=== PATIENT | female | born 1935 | race Caucasian/White ===

== ENCOUNTER 2018-06-18 19:45 | Emergency (ER) | payer MEDICARE ==
[~2018-06-18] VITALS: Ht 160 cm; Wt 114.0 kg
[~2018-06-18 19:45] MED LIST: ALDACTONE50 MG OR; AMOXICILLIN500 MG PO; ATENOLOL50 MG PO; BABY ASPIRIN81 MG PO; BACTROBAN2 % EX; CALCITRIOL0.25 MC1 OR; CALCIUM/D600 M3 PO; CALCIUM600 M1 OR; CHOLESTYRAM4 GM OR; COQ10100 MG PO; COUMADIN5 MG PO; FENOFIBRATE54 MG PO; FISH OIL1200 M1 OR; FLAX SEED1000 MG PO; FLEXERIL PO; FLEXERIL10 MG PO; GLUCOSAMINE1000 M1 OR; GNP RED YEAST RICE OR; KENALOG-4040 MG/ML IC; LOMOTIL2.5 MG PO; LOVASTATIN40 M1 PO; LOVASTATIN40 MG PO; MEDDOSEPAK OR; MEDDOSEPAK PO; NYSTATIN TOP; NYSTATIN100000 M3 TOP; OMEPRAZOLE20 M1 PO; OMEPRAZOLE20 MG OR; PLAVIX75 MG PO; POLYTRIM OD; POT CHLORIDE10 ME5 OR; PROLIA60 MG/ML SC; RANITIDINE150 M1 PO; RANITIDINE150 MG PO; SANTYL250 MG/GM EX; TENORMIN50 MG PO; TIZANIDINE HCL4 MG PO; TIZANIDINE2 MG PO; TIZANIDINE4 MG PO; TORSEMIDE20 M1 PO; ULTRAM50 MG PO; WARFARIN SODIUM5 MG PO; WARFARIN2.5 MG OR; WARFARIN2.5 MG PO; WARFARIN5 MG OR; WARFARIN5 MG PO; WOMENS MULTI OR; ZOSTAVAX IM; [UNRECOGNIZED DRUG - OTHER]; [UNRECOGNIZED DRUG - SUPPLY]
[2018-06-18 21:08] LABS: IMMATURE GRANULOCYTES 0.9 % (0.0-5.0); MEAN CELL VOLUME 93.7 fL CALC (80.0-100.0); MEAN CORPUSCULAR HGB 30.4 pG CALC (26.0-32.0); MEAN CORPUSCULAR HGB CONC 32.4 g/L CALC (32.0-36.0); NEUT# 9.53 thou/uL (2.00-7.15); RED BLOOD COUNT 5.43 mill/uL (4.20-5.60); RED CELL DISTRI WIDTH 12.9 % (11.5-15.5); URINE BILIRUBIN - DIPSTICK NEGATIVE (NEGATIVE); URINE BLOOD DIPSTICK SMALL (NEGATIVE); URINE COLOR YELLOW; URINE GLUCOSE - DIPSTICK NEGATIVE (NEGATIVE); URINE KETONE NEGATIVE (NEGATIVE); URINE NITRITE - DIPSTICK NEGATIVE (Negative); URINE PROTEIN - DIPSTICK NEGATIVE (NEG-TRACE); URINE UROBILINOGEN - DIPSTICK 0.2 E.U./dL (0.2)
[2018-06-18 21:09] LABS: HEMATOCRIT 50.9 % (37.0-47.0); HEMOGLOBIN 16.5 g/dl (12.0-16.0); URINE CLARITY CLOUDY; URINE LEUK ESTERASE MODERATE (NEGATIVE)
[2018-06-18 21:27] LABS: URINE BACTERIA FEW hpf; URINE SQUAMOUS EPITHELIAL CELL FEW EPI/hpf (0-FEW)
[2018-06-18 21:28] LABS: URINE YEAST FEW hpf
[2018-06-18 22:23] LABS: ALBUMIN 4.1 g/dL (3.2-5.0); BILIRUBIN, TOTAL 0.4 mg/dL (0.0-1.4); CREATININE 1.2 mg/dL (0.5-1.0); POTASSIUM 4.8 mmol/l (3.5-5.1); TOTAL PROTEIN 7.1 g/dL (6.3-8.2)
[2018-06-18] MEDS ORDERED: Levaquin PO (23:33)
[2018-06-18] MEDS ORDERED: ORPHENADRINE100 MG PO (23:33)
[2018-06-18] MEDS ORDERED: IBUPROFEN600 MG PO (23:33)
[2018-06-19 00:54] VITALS: BP 140/69
== END 2018-06-19 00:50 | disposition home or self-care (01) ==
LOC: ED 19:45
PROVIDERS: Emergency Medicine
DX: M51.37 Other intervertebral disc degeneration, lumbosacral region (principal); N39.0 Urinary tract infection, site not specified; I10 Essential (primary) hypertension; Z86.73 Personal history of transient ischemic attack (TIA), and cerebral infarction without residual deficits
CPT/HCPCS: J1956

== ENCOUNTER → 2018-10-11 | Outpatient (REF) | payer MEDICARE ==
[~2018-10-11] MED LIST changes: +IBUPROFEN600 MG PO; +Levaquin PO; +ORPHENADRINE100 MG PO
[2018-10-11 11:24] LABS: HEMATOCRIT 44.2 % (37.0-47.0); MEAN CELL VOLUME 94.2 fL CALC (80.0-100.0); MEAN CORPUSCULAR HGB 29.9 pG CALC (26.0-32.0); MEAN CORPUSCULAR HGB CONC 31.7 g/L CALC (32.0-36.0); RED BLOOD COUNT 4.69 mill/uL (4.20-5.60); RED CELL DISTRI WIDTH 13.1 % (11.5-15.5)
[2018-10-11 11:41] LABS: ALBUMIN 3.8 g/dL (3.2-5.0); BILIRUBIN, TOTAL 0.5 mg/dL (0.0-1.4); CREATININE 1.2 mg/dL (0.5-1.0); POTASSIUM 4.6 mmol/l (3.5-5.1); TOTAL PROTEIN 6.6 g/dL (6.3-8.2)
== END | disposition home or self-care (01) ==
LOC: LAB 10:29
PROVIDERS: ATTEND Internal Medicine
DX: E78.5 Hyperlipidemia, unspecified (principal); I10 Essential (primary) hypertension; M47.816 Spondylosis without myelopathy or radiculopathy, lumbar region; M81.0 Age-related osteoporosis without current pathological fracture; N18.3 Chronic kidney disease, stage 3 (moderate); Z95.2 Presence of prosthetic heart valve

== ENCOUNTER 2021-07-28 10:52 | Emergency (ER) | payer MEDICARE ==
[~2021-07-28] VITALS: Ht 160 cm; Wt 130.0 kg
[2021-07-28 12:35] LABS: HEMATOCRIT 39.5 % (37.0-47.0); HEMOGLOBIN 12.9 g/dl (12.0-16.0); IMMATURE GRANULOCYTES 0.1 % (0.0-5.0); MEAN CELL VOLUME 93.2 fL CALC (80.0-100.0); MEAN CORPUSCULAR HGB 30.4 pG CALC (26.0-32.0); MEAN CORPUSCULAR HGB CONC 32.7 g/dL CAL (32.0-36.0); NEUT# 6.9 thou/uL (2.00-7.15); RED BLOOD COUNT 4.24 mill/uL (4.20-5.60); RED CELL DISTRI WIDTH 12.7 % (11.5-15.5)
[2021-07-28 12:52] LABS: ALBUMIN 3.7 g/dL (3.2-5.0); ALKALINE PHOSPHATASE 58 u/l (38-126); ANION GAP 10 (6-22 (CALC)); BUN 16 mg/dL (8-23); BUN/CREATININE RATIO 16 (12-20 (CALC)); CARBON DIOXIDE 28 mmol/l (22-30); CHLORIDE 104 mmol/l (95-108); GFR 52 ML/MIN (>=60 (CALC)); GFR FOR AFR.AMER. > 60 ML/MIN (>=60 (CALC)); POTASSIUM 4.2 mmol/l (3.5-5.1); SGOT/AST 29 u/l (9-36); SODIUM 138 mmol/l (137-146)
[2021-07-28 13:02] LABS: BILIRUBIN, TOTAL 0.8 mg/dL (0.0-1.4)
[2021-07-28 13:09] LABS: INTERNATIONAL NORMALIZED RATIO 4.8 RATIO (0.7-1.3)
[2021-07-28 16:16] VITALS: BP 135/95
== END 2021-07-28 16:16 | disposition home or self-care (01) ==
LOC: ED 10:52
PROVIDERS: Family Medicine
DX: S80.01XA Contusion of right knee, initial encounter (principal); M25.551 Pain in right hip; I10 Essential (primary) hypertension; Z79.01 Long term (current) use of anticoagulants; Z95.2 Presence of prosthetic heart valve; W01.0XXA Fall on same level from slipping, tripping and stumbling without subsequent striking against object, initial encounter; Y92.009 Unspecified place in unspecified non-institutional (private) residence as the place of occurrence of the external cause; Z86.73 Personal history of transient ischemic attack (TIA), and cerebral infarction without residual deficits

== ENCOUNTER 2021-12-12 03:37 | Observation (INO) | payer MEDICARE ==
[~2021-12-12] VITALS: Ht 160 cm; Wt 90.9 kg
[~2021-12-12 03:37] MED LIST changes: +ASPIRINCHW 81MG PO; -BABY ASPIRIN81 MG PO; +CALCIUM PO; -CALCIUM/D600 M3 PO; +CEPHALEXIN500 M1 PO; +D3250 MCG PO; +GLUCOSAMI11 PO; +MULTIVITAMI9 PO; +MYRBETRIQ50 MG PO; +SOLIFENACIN SUC10 MG PO; +[UNRECOGNIZED DRUG - OTHER] PO; +[UNRECOGNIZED DRUG - OTHER] PO
[2021-12-12 03:43] VITALS: BP 177/59
[2021-12-12 04:07] LABS: HEMATOCRIT 44.4 % (37.0-47.0); HEMOGLOBIN 14.3 g/dl (12.0-16.0); IMMATURE GRANULOCYTES 0.3 % (0.0-5.0); MEAN CELL VOLUME 92.5 fL CALC (80.0-100.0); MEAN CORPUSCULAR HGB 29.8 pG CALC (26.0-32.0); MEAN CORPUSCULAR HGB CONC 32.2 g/dL CAL (32.0-36.0); NEUT# 4.43 thou/uL (2.00-7.15); RED BLOOD COUNT 4.8 mill/uL (4.20-5.60); RED CELL DISTRI WIDTH 12.7 % (11.5-15.5)
[2021-12-12 04:27] LABS: INTERNATIONAL NORMALIZED RATIO 3.7 RATIO (0.7-1.3); PROTHROMBIN TIME 35.4 SECONDS (9.0-12.5)
[2021-12-12 04:29] LABS: ALBUMIN 4.1 g/dL (3.2-5.0); ALKALINE PHOSPHATASE 45 u/l (38-126); ANION GAP 14 (6-22 (CALC)); BILIRUBIN, TOTAL 0.5 mg/dL (0.0-1.4); BUN 20 mg/dL (8-23); BUN/CREATININE RATIO 21 (12-20 (CALC)); CARBON DIOXIDE 29 mmol/l (22-30); CHLORIDE 103 mmol/l (95-108); CREATININE 0.9 mg/dL (0.5-1.0); GFR 59 ML/MIN (>=60 (CALC)); GFR FOR AFR.AMER. > 60 ML/MIN (>=60 (CALC)); POTASSIUM 4.4 mmol/l (3.5-5.1); SGOT/AST 32 u/l (9-36); SODIUM 141 mmol/l (137-146)
[2021-12-12 05:13] LABS: URINE BILIRUBIN - DIPSTICK NEGATIVE (NEGATIVE); URINE BLOOD DIPSTICK TRACE-INTACT (NEGATIVE); URINE COLOR YELLOW; URINE GLUCOSE - DIPSTICK NEGATIVE (NEGATIVE); URINE KETONE NEGATIVE (NEGATIVE); URINE LEUK ESTERASE TRACE (NEGATIVE); URINE SPECIFIC GRAVITY <=1.005; URINE UROBILINOGEN - DIPSTICK 0.2 E.U./dL (0.2)
[2021-12-12 05:21] LABS: URINE NITRITE - DIPSTICK NEGATIVE (Negative); URINE PROTEIN - DIPSTICK NEGATIVE (NEG-TRACE)
[2021-12-12] MEDS ORDERED: WARFARIN2 MG PO (05:26)
[2021-12-12 05:31] VITALS: BP 156/55
[2021-12-12 06:01] VITALS: BP 147/59
[2021-12-12 07:44] VITALS: BP 143/59
[2021-12-12] MEDS ORDERED: WARFARIN SODIU2.5 MG PO (11:51)
[2021-12-12] MEDS ORDERED: CALCIUM600 M1 PO (11:58)
[2021-12-12] MEDS ORDERED: FLAXSEED OIL1200 MG PO (12:01)
[2021-12-12] MEDS ORDERED: FISH OIL1000 M2 PO (12:02)
[2021-12-12] MEDS ORDERED: BENADRYL 25MG C25 MG PO (12:05)
[2021-12-12] MEDS ORDERED: CRESTOR10 MG PO (12:07)
== END 2021-12-12 15:02 ==
LOC: ED 03:37 → ED-I 05:05 → MS2 05:20 → ED 05:20 → MS2 15:02
PROVIDERS: Emergency Medicine; ADMIT Hospitalist; ATTEND Hospitalist
DX: S00.83XA Contusion of other part of head, initial encounter (principal); S80.02XA Contusion of left knee, initial encounter; S70.12XA Contusion of left thigh, initial encounter; I10 Essential (primary) hypertension; W01.0XXA Fall on same level from slipping, tripping and stumbling without subsequent striking against object, initial encounter; Y92.009 Unspecified place in unspecified non-institutional (private) residence as the place of occurrence of the external cause; Z86.73 Personal history of transient ischemic attack (TIA), and cerebral infarction without residual deficits; Z79.01 Long term (current) use of anticoagulants; Z95.2 Presence of prosthetic heart valve; Z60.2 Problems related to living alone; Z20.822 Contact with and (suspected) exposure to COVID-19

== ENCOUNTER 2023-03-13 19:48 | Emergency (ER) | payer MEDICARE ==
[~2023-03-13] VITALS: Ht 160 cm; Wt 74.0 kg
[2023-03-13] VITALS (9 sets, daily range): BP systolic 165–201; BP diastolic 63–96
[~2023-03-13 19:48] MED LIST changes: +BENADRYL 25MG C25 MG PO; +CALCIUM600 M1 PO; +CRESTOR10 MG PO; +FISH OIL1000 M2 PO; +FLAXSEED OIL1200 MG PO; +WARFARIN SODIU2.5 MG PO; +WARFARIN2 MG PO
[2023-03-13 20:29] LABS: BASO% 0.7 % (0-3); EOS% 3.1 % (0-8); HEMATOCRIT 38.8 % (37.0-47.0); HEMOGLOBIN 12.3 g/dl (12.0-16.0); LYMPH% 23.1 % (15-41); MEAN CELL VOLUME 93.3 fL CALC (80.0-100.0); MEAN CORPUSCULAR HGB 29.6 pG CALC (26.0-32.0); MEAN CORPUSCULAR HGB CONC 31.7 g/dL CAL (32.0-36.0); MONO% 12.5 % (2-13); NEUT# 3.58 thou/uL (2.00-7.15); NEUT% 60.6 % (42-76); RED BLOOD COUNT 4.16 mill/uL (4.20-5.60); RED CELL DISTRI WIDTH 12.7 % (11.5-15.5)
[2023-03-13 20:47] LABS: ALBUMIN 3.6 g/dL (3.2-5.0); ALKALINE PHOSPHATASE 41 u/l (38-126); ANION GAP 5 (6-22 (CALC)); BILIRUBIN, TOTAL 0.8 mg/dL (0.02-1.3); BUN 10 mg/dL (8-23); BUN/CREATININE RATIO 12 (12-20 (CALC)); CARBON DIOXIDE 39 mmol/l (22-30); CHLORIDE 100 mmol/l (95-108); CREATININE 0.8 mg/dL (0.5-1.0); GFR FOR AFR.AMER. > 60 ML/MIN (>=60 (CALC)); GFR OTHER RACES > 60 ML/MIN (>=60 (CALC)); INTERNATIONAL NORMALIZED RATIO 3.5 RATIO (0.7-1.3); POTASSIUM 2.8 mmol/l (3.5-5.1); PROTHROMBIN TIME 36.5 SECONDS (9.0-12.5); SGOT/AST 34 u/l (9-36); SODIUM 141 mmol/l (137-146); TOTAL PROTEIN 6.1 g/dL (6.3-8.2)
[2023-03-13] MEDS ORDERED: POTASSIUM CHLO20 ME1 PO (22:01)
== END 2023-03-13 23:06 | disposition home or self-care (01) ==
LOC: ED 19:48
PROVIDERS: Family Medicine
DX: Z04.3 Encounter for examination and observation following other accident (principal); E87.6 Hypokalemia; I10 Essential (primary) hypertension; Z86.73 Personal history of transient ischemic attack (TIA), and cerebral infarction without residual deficits

== ENCOUNTER 2023-03-22 22:16 | Observation (INO) | payer MEDICARE ==
[~2023-03-22] VITALS: Ht 160 cm; Wt 68.8 kg
[~2023-03-22 22:16] MED LIST changes: +POTASSIUM CHLO20 ME1 PO
[2023-03-22 22:23] VITALS: BP 199/132
[2023-03-22 22:27] VITALS: BP 198/71
[2023-03-22 23:35] LABS: BASO% 0.6 % (0-3); EOS% 2.3 % (0-8); HEMATOCRIT 43.9 % (37.0-47.0); HEMOGLOBIN 14.1 g/dl (12.0-16.0); LYMPH% 23.4 % (15-41); MEAN CELL VOLUME 92.8 fL CALC (80.0-100.0); MEAN CORPUSCULAR HGB 29.8 pG CALC (26.0-32.0); MEAN CORPUSCULAR HGB CONC 32.1 g/dL CAL (32.0-36.0); MONO% 11.9 % (2-13); NEUT# 4.12 thou/uL (2.00-7.15); NEUT% 61.8 % (42-76); RED BLOOD COUNT 4.73 mill/uL (4.20-5.60)
[2023-03-22 23:49] LABS: ALBUMIN 4.3 g/dL (3.2-5.0); ALKALINE PHOSPHATASE 49 u/l (38-126); BUN 12 mg/dL (8-23); BUN/CREATININE RATIO 14 (12-20 (CALC)); CARBON DIOXIDE 32 mmol/l (22-30); CHLORIDE 103 mmol/l (95-108); CREATININE 0.9 mg/dL (0.5-1.0); GFR FOR AFR.AMER. > 60 ML/MIN (>=60 (CALC)); GFR OTHER RACES 59 ML/MIN (>=60 (CALC)); SGOT/AST 39 u/l (9-36); SODIUM 140 mmol/l (137-146); TOTAL PROTEIN 7.3 g/dL (6.3-8.2)
[2023-03-22 23:51] LABS: ANION GAP 9 (6-22 (CALC)); BILIRUBIN, TOTAL 1.2 mg/dL (0.02-1.3); POTASSIUM 4.2 mmol/l (3.5-5.1)
[2023-03-22 23:54] VITALS: BP 182/130
[2023-03-22 23:55] VITALS: BP 193/127
[2023-03-22 23:58] VITALS: BP 174/70
[2023-03-23] VITALS (7 sets, daily range): BP systolic 161–191; BP diastolic 54–82
[2023-03-23 00:11] LABS: INTERNATIONAL NORMALIZED RATIO 12.5 RATIO (0.7-1.3)
[2023-03-23 00:47] LABS: URINE BILIRUBIN - DIPSTICK Negative (NEGATIVE); URINE BLOOD DIPSTICK Small (NEGATIVE); URINE GLUCOSE - DIPSTICK Negative (NEGATIVE); URINE KETONE Trace mg/dL (NEGATIVE); URINE LEUK ESTERASE Trace (NEGATIVE); URINE PH 7.5 (4.5-8.0); URINE PROTEIN - DIPSTICK Negative (NEG-TRACE); URINE SPECIFIC GRAVITY 1.015; URINE UROBILINOGEN - DIPSTICK 0.2 E.U./dL (0.2)
[2023-03-23 00:54] LABS: URINE COLOR Yellow; URINE NITRITE - DIPSTICK Negative (Negative)
[2023-03-23 00:55] LABS: URINE BACTERIA FEW hpf; URINE EPITHELIAL CELLS FEW EPI/hpf (0-FEW)
[2023-03-23 14:53] LABS: INTERNATIONAL NORMALIZED RATIO 2.2 RATIO (0.7-1.3); PROTHROMBIN TIME 20.4 SECONDS (9.0-12.5)
[2023-03-24 00:18] VITALS: BP 169/68
[2023-03-24 04:07] VITALS: BP 172/67
[2023-03-24 06:16] LABS: HEMOGLOBIN 12.4 g/dl (12.0-16.0); MEAN CELL VOLUME 93.1 fL CALC (80.0-100.0); MEAN CORPUSCULAR HGB 30.7 pG CALC (26.0-32.0); RED BLOOD COUNT 4.04 mill/uL (4.20-5.60); RED CELL DISTRI WIDTH 12.9 % (11.5-15.5)
[2023-03-24 06:17] LABS: HEMATOCRIT 37.6 % (37.0-47.0)
[2023-03-24 06:22] LABS: ANION GAP 6 (6-22 (CALC)); BUN 10 mg/dL (8-23); BUN/CREATININE RATIO 15 (12-20 (CALC)); CARBON DIOXIDE 29 mmol/l (22-30); CHLORIDE 110 mmol/l (95-108); CREATININE 0.6 mg/dL (0.5-1.0); GFR FOR AFR.AMER. > 60 ML/MIN (>=60 (CALC)); GFR OTHER RACES > 60 ML/MIN (>=60 (CALC)); POTASSIUM 3.4 mmol/l (3.5-5.1); SODIUM 141 mmol/l (137-146)
[2023-03-24 06:31] LABS: INTERNATIONAL NORMALIZED RATIO 1.4 RATIO (0.7-1.3); PROTHROMBIN TIME 13.3 SECONDS (9.0-12.5)
[2023-03-24 07:04] VITALS: BP 176/71
[2023-03-24 11:17] VITALS: BP 178/60
[2023-03-24 15:16] VITALS: BP 167/56
[2023-03-24 21:25] VITALS: BP 183/63
[2023-03-25] VITALS (7 sets, daily range): BP systolic 155–184; BP diastolic 54–73
[2023-03-25 05:34] LABS: BASO% 0.5 % (0-3); EOS% 4.1 % (0-8); HEMATOCRIT 37.8 % (37.0-47.0); HEMOGLOBIN 12.7 g/dl (12.0-16.0); LYMPH% 24.5 % (15-41); MEAN CELL VOLUME 91.5 fL CALC (80.0-100.0); MEAN CORPUSCULAR HGB 30.8 pG CALC (26.0-32.0); MEAN CORPUSCULAR HGB CONC 33.6 g/dL CAL (32.0-36.0); MONO% 14.7 % (2-13); NEUT# 3.55 thou/uL (2.00-7.15); NEUT% 56.2 % (42-76); RED BLOOD COUNT 4.13 mill/uL (4.20-5.60)
[2023-03-25 05:38] LABS: INTERNATIONAL NORMALIZED RATIO 1.5 RATIO (0.7-1.3)
[2023-03-25 05:43] LABS: ALKALINE PHOSPHATASE 43 u/l (38-126); ANION GAP 5 (6-22 (CALC)); BILIRUBIN, TOTAL 1.3 mg/dL (0.02-1.3); BUN 6 mg/dL (8-23); BUN/CREATININE RATIO 9 (12-20 (CALC)); CARBON DIOXIDE 30 mmol/l (22-30); CHLORIDE 110 mmol/l (95-108); CREATININE 0.6 mg/dL (0.5-1.0); GFR FOR AFR.AMER. > 60 ML/MIN (>=60 (CALC)); GFR OTHER RACES > 60 ML/MIN (>=60 (CALC)); MAGNESIUM 1.8 mg/dL (1.6-2.3); POTASSIUM 3.3 mmol/l (3.5-5.1); SGOT/AST 33 u/l (9-36); SODIUM 142 mmol/l (137-146)
[2023-03-25 05:48] LABS: TOTAL PROTEIN 5.7 g/dL (6.3-8.2)
[2023-03-26 00:31] VITALS: BP 167/59
[2023-03-26 00:39] VITALS: BP 167/59
[2023-03-26 04:16] VITALS: BP 166/56
[2023-03-26 05:15] VITALS: BP 166/56
[2023-03-26 05:24] LABS: BASO% 0.8 % (0-3); HEMATOCRIT 38.7 % (37.0-47.0); HEMOGLOBIN 12.9 g/dl (12.0-16.0); IMMATURE GRANULOCYTES 0.1 % (0.0-5.0); LYMPH% 22.5 % (15-41); MEAN CELL VOLUME 91.9 fL CALC (80.0-100.0); MEAN CORPUSCULAR HGB 30.6 pG CALC (26.0-32.0); MEAN CORPUSCULAR HGB CONC 33.3 g/dL CAL (32.0-36.0); MONO% 10.6 % (2-13); NEUT# 4.63 thou/uL (2.00-7.15); RED BLOOD COUNT 4.21 mill/uL (4.20-5.60); RED CELL DISTRI WIDTH 13.2 % (11.5-15.5)
[2023-03-26 05:43] LABS: ALBUMIN 3.1 g/dL (3.2-5.0); ALKALINE PHOSPHATASE 44 u/l (38-126); ANION GAP 5 (6-22 (CALC)); BILIRUBIN, TOTAL 1.2 mg/dL (0.02-1.3); BUN 6 mg/dL (8-23); BUN/CREATININE RATIO 9 (12-20 (CALC)); CARBON DIOXIDE 28 mmol/l (22-30); CHLORIDE 111 mmol/l (95-108); CREATININE 0.6 mg/dL (0.5-1.0); GFR FOR AFR.AMER. > 60 ML/MIN (>=60 (CALC)); GFR OTHER RACES > 60 ML/MIN (>=60 (CALC)); MAGNESIUM 2.2 mg/dL (1.6-2.3); POTASSIUM 3.4 mmol/l (3.5-5.1); SGOT/AST 30 u/l (9-36); SODIUM 140 mmol/l (137-146); TOTAL PROTEIN 5.7 g/dL (6.3-8.2)
[2023-03-26 06:07] LABS: INTERNATIONAL NORMALIZED RATIO 1.6 RATIO (0.7-1.3); PROTHROMBIN TIME 14.7 SECONDS (9.0-12.5)
[2023-03-26 06:13] VITALS: BP 146/52
[2023-03-26 11:15] VITALS: BP 169/50
[2023-03-26] MEDS ORDERED: AMLODIPINE BES2.5 MG PO (11:22)
== END 2023-03-26 14:32 ==
LOC: ED 22:16 → ED-I 22:43 → ED 03-23 00:43 → MS2 03-23 00:44
PROVIDERS: Emergency Medicine; Nurse Practitioner Family; ADMIT Student in an Organized Health Care Education/Training Program; ATTEND Student in an Organized Health Care Education/Training Program
DX: S80.11XA Contusion of right lower leg, initial encounter (principal); D68.32 Hemorrhagic disorder due to extrinsic circulating anticoagulants; T45.515A Adverse effect of anticoagulants, initial encounter; S80.811A Abrasion, right lower leg, initial encounter; R62.7 Adult failure to thrive; E87.6 Hypokalemia; I44.1 Atrioventricular block, second degree; I10 Essential (primary) hypertension; W22.8XXA Striking against or struck by other objects, initial encounter; Z79.01 Long term (current) use of anticoagulants; Z86.73 Personal history of transient ischemic attack (TIA), and cerebral infarction without residual deficits; Z60.2 Problems related to living alone; Z95.2 Presence of prosthetic heart valve; Z20.822 Contact with and (suspected) exposure to COVID-19; M81.0 Age-related osteoporosis without current pathological fracture
CPT/HCPCS: J0897; J3475